=== PATIENT | female | born 1945 | race Two or more races ===

== ENCOUNTER 2020-02-04 09:46 | Day surgery (SDC) | payer OTHER ==
[~2020-02-04 09:46] MED LIST: CAMBIA50 MG PO; CENTRUM SILVER1 EAC2 PO; GLIMEPIRIDE1 MG; LEVO-T25 MCG PO; LIPITOR20 MG PO; PANADOL EXTRA500 MG PO; PAXIL30 MG PO; PLAVIX75 MG PO; PROPRANOLOL HCL60 M1 PO
== END 2020-02-04 17:50 | disposition home or self-care (01) ==
LOC: CIR.AMB 09:46
PROVIDERS: ATTEND Colon & Rectal Surgery
DX: D12.9 Benign neoplasm of anus and anal canal (principal); K64.1 Second degree hemorrhoids; Z20.828 Contact with and (suspected) exposure to other viral communicable diseases